=== PATIENT | female | born 1995 | race Hispanic/Latino ===

== ENCOUNTER 2019-09-05 17:45 | Inpatient (IN) | payer MEDICAID, OTHER, SELFPAY ==
[~2019-09-05 17:45] MED LIST: Bupivacaine HCl 0.5%/Epinephrine 1:200,000/PF 30 ml Vial ONE
[2019-09-05 18:13] VITALS: BMI 30.7
[2019-09-05] MEDS ORDERED: hydrALAZINE 20 MG/ML VIAL SLOW IVP PRN (18:34)
[2019-09-05] MEDS ORDERED: Ibuprofen 800 MG TAB PO PRN (18:34)
[2019-09-05] MEDS ORDERED: Methylergonovine 0.2 MG/ML VIAL IM PRN (18:34)
[2019-09-05] MEDS ORDERED: Carboprost 250 MCG/ML AMP IM PRN (18:34)
[2019-09-05] MEDS ORDERED: Promethazine HCl 25 MG/ML VIAL IM PRN (18:34)
[2019-09-05] MEDS ORDERED: Ondansetron PF 4 MG/2 ML Vial IVP PRN (18:34)
[2019-09-05] MEDS ORDERED: Lidocaine 1% (PF) 30 ML VIAL SC PRN (18:34)
[2019-09-05] MEDS ORDERED: NS / Oxytocin 40 units/1000ml 1,000 ML IV PRN (18:34)
[2019-09-05] MEDS ORDERED: Acetaminophen 500 MG TAB PO PRN (18:34)
[2019-09-05] MEDS ORDERED: Butorphanol Tartrate 1 MG/ML VIAL SLOW IVP PRN (18:34)
[2019-09-05] MEDS ORDERED: Misoprostol 200 MCG TAB PR PRN (18:34)
[2019-09-05] MEDS ORDERED: HYDROcodone/Acetaminophen 5/325 mg Tablet PO PRN ×2 (18:34)
[2019-09-05] MEDS ORDERED: Diphenoxylate HCl/Atropine Tablet PO PRN ×2 (18:34)
[2019-09-05] MEDS: Lactated Ringer's 1,000 ML IV SCH ×3 (19:23→23:57)
[2019-09-05 19:56] LABS: Hemoglobin 12.7 g/dL (12.0-16.0); Mean Corpuscular HGB CONC 33.4 g/dL (32.0-36.0); Mean Corpuscular Hemoglobin 31.7 pg (27.0-31.0); Mean Corpuscular Volume 94.8 fL (78.0-98.0); Mean Platelet Volume 9.3 fL (7.4-10.4); Platelet Count 203 thou/uL (130-400); RBC Distribution Width 14.7 % (11.5-14.5); Red Blood Cell (RBC) Count 4.01 mill/uL (4.20-5.40); White Blood Cell (WBC) Count 11.4 thou/uL (4.8-10.8)
[2019-09-05 20:36] LABS: Syphilis Antibody Nonreactive (Nonreactive); Syphilis Antibody Index 0.02 S/CO (<1.00 Non-Reactive)
[2019-09-05 22:00] LABS: HBSAg Index 0.16 S/CO (0-0.99); Hep B Surf Ag Non-Reactive S/CO (NonReactive)
[2019-09-05] MEDS ORDERED: Fentanyl 4 mcg/Bup 0.1% Cadd 100 ML ONE (23:43)
[2019-09-06] MEDS ORDERED: Naloxone HCl 0.4 mg/ml Vial IVP PRN ×2 (00:40)
[2019-09-06] MEDS ORDERED: diphenhydrAMINE 50 MG/ML VIAL IVP PRN (00:40)
[2019-09-06] MEDS ORDERED: EPHEDRINE 25 MG/5 ML SYRINGE SLOW IVP PRN (00:40)
[2019-09-06] MEDS ORDERED: Acetaminophen 325 MG TAB PO PRN (00:40)
[2019-09-06] MEDS ORDERED: Lactated Ringer's 500 ML IV PRN (00:40)
[2019-09-06] MEDS ORDERED: Promethazine HCl 25 MG/ML VIAL IM PRN (00:40)
[2019-09-06] MEDS ORDERED: Ondansetron PF 4 MG/2 ML Vial IVP PRN (00:40)
[2019-09-06] MEDS ORDERED: Communication Order-Pharmacy FS SCH (00:45)
[2019-09-06] MEDS ORDERED: Fentanyl 4 mcg/Bupivacaine 0.1% Cassette 100 ML EPIDURAL SCH (00:45)
[2019-09-06] MEDS: Lactated Ringer's 1,000 ML IV SCH ×2 (04:56→10:46)
[2019-09-06] MEDS ORDERED: NS / Oxytocin 40 units/1000ml 1,000 ML ONE (06:22)
[2019-09-06] MEDS ORDERED: Lidocaine 1% (PF) 30 ML VIAL ONE (06:22)
[2019-09-06] MEDS ORDERED: Fentanyl 4 mcg/Bup 0.1% Cadd 100 ML ONE (07:44)
--- NOTE | 2019-09-06 08:24 | PDOC.LDHP ---
Labor and Delivery H&P Chief complaint: contractions HPI: Patient arrived to hospital yesterday afternoon complaining of contractions. Denied LOF. She was /-1 on admission and desired pain control. Current gestational age (weeks): 40 Due date: 09/04/19 Dating criteria: last menstrual period (verieifed with 1st trimester US at 1023d.) Grav: 1 Para: 0 Current complications: none Abnormal US findings: No Current medications: pre- vitamins Previous surgical history: none Allergies/Adverse Reactions: Allergies Allergy/AdvReac Type Severity Reaction Status Date / Time No Known Allergies Allergy Unverified 09/05/19 18:09 Social history: none - Physical Exam Vital signs reviewed and normal: yes General: breathing through contractions Lungs: nonlabored breathing Abdomen: gravid FHT: category 1 - Vaginal Exam cm dilated: 7 Effacement: 100% Station: 0 - OB Labs Blood type: O RH: positive Antibody Screen: negative HIV: negative RPR: negative HEPSAg: negative 1 hour GCT: negative GBS: negative Urine drug screen: negative Rubella: immune - Assessment L&D Assessment: term patient in labor - Plan Plan: admit to L&D, anesthesia consult for pain management
[2019-09-06] MEDS: NS w/ Oxytocin 10 units 500 ML IV SCH (08:45)
[2019-09-06] MEDS ORDERED: Fentanyl 100 MCG/2 ML VIAL ONE (10:54)
[2019-09-06] MEDS ORDERED: Methylergonovine 0.2 MG/ML VIAL ONE (13:39)
[2019-09-06] MEDS ORDERED: Tranexamic Acid 1,000 MG/10 ML VIAL ONE (13:52)
[2019-09-06] MEDS ORDERED: Benzocaine-Menthol 82.5 ML CAN TOP PRN (19:32)
[2019-09-06] MEDS ORDERED: traMADol HCl 50 MG TAB PO PRN (21:49)
[2019-09-06] MEDS: Ibuprofen 600 MG TAB PO PRN (22:08)
--- NOTE | 2019-09-06 23:49 | OP ---
DATE OF PROCEDURE: 09/06/2019 DESCRIPTION OF PROCEDURE: The patient is a 24-year-old female who had been managed by Michelle Murrieta through her and intrapartum care. After pushing for about 3 hours without success, I was asked to come in and evaluate the patient's status. The patient was complete at 8:30 in the morning. Time of my encounter was approximately 1:15. At the time of my evaluation, the patient was noted to be complete and +2. The patient's fetus was SAVANNAH and the patient had a good epidural. In pushing with the patient, the patient was noted to be experiencing maternal exhaustion and giving very inadequate effort for spontaneous vaginal delivery. After discussing the option of vacuum-assisted vaginal delivery and the risks including the risk of hematoma under the baby skin and bleeding in the baby's brain, the patient expressed a desire to proceed. Culver was removed just prior to my presentation and the patient was noted to have good adequate anesthesia. The presentation of the head and station were well understood. The fetus was noted at that time to have a category 1 tracing with baseline in the 140s with moderate long-term variability and positive accelerations. A soft-cup vacuum was then placed on the head with the edge of the cup approximately 1-2 cm from the posterior suture lines. The cup was noted to be midline. With maternal effort , on three consecutive pulls, the head was delivered to the perineum. There was one pop-off, then the patient was given opportunity to finish delivering the fetus through the maternal effort. Again being clear that mom had no more effort to give to this process, the vacuum was then reapplied to the head and with maternal effort and great care, the head was delivered to the point of and the vacuum was then removed once again. With perineal pressure and maternal pushing , the head was then delivered. There was some concern of potential shoulder dystocia, but however, with gentle downward traction, the shoulder did deliver without much difficulty and the fetus was carefully delivered through the perineum to the maternal abdomen. There, the baby showed signs of vigor, spontaneous breathing and crying, and good tone. After 1 minute, the cord was clamped and cut, and the infant was taken to the warmer for evaluation and cleaning. At this point, looking up at the perineum and the labia, the patient was noted to have a left periurethral laceration that was bleeding and a partial third-degree laceration with the capsule disrupted, but the sphincter intact. There was noted to be a very little perineal body space between the anal sphincter and the vaginal introitus. During this time, the patient was also noted to have quite a bit of atony. The patient was bolused once the placenta delivered spontaneously. The patient was given Pitocin for an effort to combat the atony. The patient also required a dose of Methergine, 800 mcg of Cytotec vaginally. The patient continued to bleed and was given a dose of Hemabate and 1 g of TXA. By this time, the bleeding had essentially resolved. At this point, attention was placed to completing the repair of lacerations. The left labial laceration was noted to stop bleeding spontaneously. This was repaired with a 3-0 chromic on SH needle. Two vaginal second-degree lacerations were noted and were repaired with two independent sutures of 2-0 chromic in a running locked fashion down to the level of the hymen. The sphincter noted to have a possible disruption in the capsule was repaired with a single [id number] with a 2-0 Vicryl. The remaining second-degree laceration was then repaired in the normal usual fashion with one of the 2-0 chromic. The other one was used to close a labial laceration that extended from the perineum. Delivery time was at 1333 hours. was a female, delivered at 40 weeks and 2 days, weight of 3111 g, Apgars of 8 and 9. ESTIMATED BLOOD LOSS: 1500 mL. COUNTS: Correct. DELIVERING PHYSICIAN: Chicho Almanzar MD. HAND FORMER HELPER: Ms. Michelle Murrieta, primary OB provider, certified nurse pharmacy aide. COMPLICATIONS: Acute blood loss anemia and hemorrhage. Mother and baby are both stable in the room in the immediate . In an effort to maintain good resuscitation of the patient, a second IV was placed and was given another bolus L of fluid. By completion of the repair, the patient was noted to have normal blood pressures, a pulse in the 100 range, and having good urine output as a Culver catheter was replaced. With these parameters identified, the patient was then watched for signs of dehydration and need to adjust volume status. Otherwise, plan at this time is to repeat a CBC at its normal time in the morning. Should the patient show any signs of significant volume depletion or worsening status, we will repeat a CBC at that point. Job ID: [id number] MTDD
[2019-09-07] MEDS: Lactated Ringer's 1,000 ML IV SCH ×2 (00:20→16:01)
[2019-09-07] MEDS: Ibuprofen 600 MG TAB PO PRN (05:06)
[2019-09-07 08:48] LABS: Hemoglobin 7.5 g/dL (12.0-16.0); Mean Corpuscular HGB CONC 32.5 g/dL (32.0-36.0); Mean Corpuscular Hemoglobin 31.7 pg (27.0-31.0); Mean Corpuscular Volume 97.3 fL (78.0-98.0); Platelet Count 140 thou/uL (130-400); RBC Distribution Width 14.8 % (11.5-14.5); Red Blood Cell (RBC) Count 2.38 mill/uL (4.20-5.40); White Blood Cell (WBC) Count 11.6 thou/uL (4.8-10.8)
[2019-09-07] MEDS ORDERED: Ondansetron PF 4 MG/2 ML Vial IVP PRN (11:43)
[2019-09-07] MEDS ORDERED: Benzocaine-Menthol 82.5 ML CAN TOP PRN (11:43)
[2019-09-07] MEDS ORDERED: HYDROcodone/Acetaminophen 5/325 mg Tablet PO PRN (11:43)
[2019-09-07] MEDS ORDERED: Milk Of Magnesia 30 ML UDCUP PO PRN (11:43)
[2019-09-07] MEDS ORDERED: NS / Oxytocin 40 units/1000ml 1,000 ML IV SCH (11:43)
[2019-09-07] MEDS ORDERED: hydrALAZINE 20 MG/ML VIAL SLOW IVP PRN (11:43)
[2019-09-07] MEDS ORDERED: Bisacodyl 10 MG SUPP PR PRN (11:43)
[2019-09-07] MEDS: HYDROcodone/Acetaminophen 5/325 mg Tablet PO PRN ×2 (11:51→13:32)
[2019-09-07] MEDS: Ibuprofen 800 MG TAB PO SCH ×2 (13:34→21:33)
[2019-09-07] MEDS: NS w/ Oxytocin 10 units 500 ML IV SCH (16:00)
[2019-09-07] MEDS: Ferrous Sulfate 325 MG TAB PO SCH (17:06)
--- NOTE | 2019-09-07 19:52 | PDOC.PP ---
Post Progress Note Post Day #: 1 Subjective: Using ekg tech. Patient is feeling better than she did this morning. This morning she was dizzy. Her de leon is out and she has been up to urinate one time without feeling badly or having dizziness. Denies SOB. Bleeding is ok but she is hurting. PO intake tolerated: yes Flatus: yes Ambulation: yes Vital Signs (12 hours) Temp Pulse Resp BP Pulse Ox 09/07/19 17:24 93 16 97/56 L 98 09/07/19 11:43 97.6 F 107 H 20 98/60 09/07/19 08:15 98.2 F 100 20 97/56 L 99 Weight Weight 168 lb - Physical Examination Respiratory: non-labored breathing Abdominal: no distention Extremities: negative homans (B) Skin: no rash Neurological: no gross focal deficits Psychiatric: A&Ox3, normal affect Result Diagrams: 09/07/19 08:07 Additional Labs: Post Labs Blood Type O POSITIVE 09/05/19 20:16 Hep Bs Antigen Non-Reactive S/CO (NonReactive) 09/05/19 19:40 (1) hemorrhage Code(s): O72.1 - OTHER IMMEDIATE HEMORRHAGE Status: Acute (2) Vacuum extraction, delivered, current hospitalization Code(s): O66.5 - ATTEMPTED APPLICATION OF VACUUM EXTRACTOR AND FORCEPS Status : Acute (3) Vacuum-assisted vaginal delivery Code(s): Z37.9 - OUTCOME OF DELIVERY, UNSPECIFIED Status: Acute (4) Primigravida Code(s): Z34.00 - ENCNTR FOR SUPRVSN OF NORMAL FIRST , UNSP TRIMESTER Status: Acute - Assessment/Plan A" G1 now p1 s/p VE delivery We discussed the PPH and medications given. In addition the changes in vitals are expected following a PPH. They are normalizing with decreased tachycardia as of this afternoon. We discussed the option of a blood transfusion should she become symptomatic again. 2. monitor urine output. 3.Will evaluated tomorrow for discharge.
[2019-09-07] MEDS: Docusate Calcium (SURFAK) 240 MG CAP PO SCH (21:33)
[2019-09-08] MEDS: Ibuprofen 800 MG TAB PO SCH ×2 (05:13→13:50)
[2019-09-08] MEDS: Docusate Calcium (SURFAK) 240 MG CAP PO SCH (08:32)
[2019-09-08] MEDS: Ferrous Sulfate 325 MG TAB PO SCH ×2 (08:32→17:39)
[2019-09-08 08:36] VITALS: BP 98/55; TEMP 98.5
[2019-09-08] MEDS ORDERED: Prenatal Vitamin 1 TAB PO SCH (09:00)
[2019-09-08] MEDS ORDERED: Adacel (T-DAP) 0.5 ML SYRINGE IM ONE (09:00)
--- NOTE | 2019-09-08 12:43 | PDOC.OPDEL ---
OB Operative/Delivery Note Delivery Dr/Surgeon: Jenelle Assist: Light Pre-Delivery Diagnosis: active labor Procedure/Post Delivery Dx: operative vaginal delivery Weeks gestation: 40 Anesthesia: epidural - Findings A Weight: 8 lb 6 oz - 1 min: 8 - 5 min: 9 - Additional Findings/Plan Repaired Obstetrical Laceration: 3rd degree (periurethral left, labial right) Estimated blood loss: 1500mL Post delivery plan: routine recovery
== END 2019-09-08 17:50 | disposition home or self-care (01) | DRG 768 ==
LOC: L&D/OP 17:45 → L&D 19:18 → 3SW 09-06 18:31
PROVIDERS: ADMIT Student in an Organized Health Care Education/Training Program; ATTEND Student in an Organized Health Care Education/Training Program
PROC: 10D07Z6 Extraction of Products of Conception, Vacuum, Via Natural or Artificial Opening (ICD-10-PCS; principal; 2019-09-06)
PROC: 0DQR0ZZ Repair Anal Sphincter, Open Approach (ICD-10-PCS; 2019-09-06)
DX: O70.20 Third degree perineal laceration during delivery, unspecified (principal); Z37.0 Single live birth; O72.1 Other immediate postpartum hemorrhage; D62 Acute posthemorrhagic anemia; O90.81 Anemia of the puerperium; Z3A.40 40 weeks gestation of pregnancy
CPT/HCPCS: 36415; 51702; 85027; 86780; 86850; 86900; 86901; 87340; 99285; J0670; J2001; J2210; J2590; J3010; J3490